=== PATIENT | female | born 1975 | race Caucasian/White ===

== ENCOUNTER 2019-07-11 19:00 | Outpatient (CLI) | payer BC ==
[2014-05-20 06:47] VITALS: BMI 43.0
[~2019-07-11 19:00] MED LIST: EFFEXOR25 MG; HYDROCODONE-APA1 TAB PO; IBUPROFEN600 MG PO; RESTORIL7.5 MG PO
== END 2019-07-11 23:59 | disposition home or self-care (01) ==
LOC: D.MAMMO 19:00
PROVIDERS: ATTEND Emergency Medicine
DX: Z12.31 Encounter for screening mammogram for malignant neoplasm of breast (principal)